=== PATIENT | female | born 1980 | race Caucasian/White ===

== ENCOUNTER 2017-01-20 14:03 | Emergency (ER) | payer OTHER ==
[2017-01-20 14:07] VITALS: BP 111/56; PULSE 75; TEMP 98; BMI 28.3
[2017-01-20] MEDS ORDERED: KETOROLAC TROMETHAMINE 60 MG/2 ML VIAL IM ONE (14:39)
--- NOTE | 2017-01-20 14:42 | PDOC ---
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 Patient reports that she woke up with pain it is positional, no pain on inspiration. Denies any chest pain or shortness of breath., Nonradiating pain, no neurosensory deficits, no bowel or bladder difficulty incontinence or urinary retention, no saddle anesthesia, no footdrop. No history of IVDU or history of cancer. REVIEW OF SYSTEMS: GENERAL: Afebrile, denies any weakness RESPIRATORY: No cough, wheezing, or hemoptysis. CARDIAC: No chest pain or shortness of breath MUSCULOSKELETAL: Pain to generalized lower back. No point tenderness. Pain worse on right than left. SKIN : No erythema, no bruising, no deformity. GI/: Denies any abdominal pain, no urinary difficulty, incontinence or urinary retention. RECTAL: Denies any difficulty this A.m. NEUROLOGICAL: Denies any numbness or tingling. No neurosensory deficits. PHYSICAL EXAM: GENERAL: The patient is awake, alert, and fully oriented, in no acute distress. RESPIRATORY: Lungs clear bilaterally, no rhonchi wheezes or crackles CARDIAC: S1-S2 audible, no murmur rub or gallop MUSCULOSKELETAL: Pain under right lateral ribs, nonradiating, no tingling or sensory deficit. Less than 2 second cap refill, +4 popliteal and pedal pulses. GI/: Abdomen soft, nontender, nondistended. No rebound tenderness. No masses palpable. MUSCULOSKELETAL: No spinal point tenderness. Normal reflexive and no deficits to sensation or strength. RECTAL: Deferred patient with no neurological findings SKIN: Warm, Dry, normal turgor, no erythema, no edema no bruising. Past History - Past Medical History Allergies/Adverse Reactions: Allergies Allergy/AdvReac Type Severity Reaction Status Date / Time No Known Allergies Allergy Verified 01/20/17 14:07 Home Medications: Ambulatory Orders Ibuprofen [Motrin -] 600 mg PO QID #28 tablet 01/20/17 Nitrofurantoin Monohyd/M-Cryst [Macrobid -] 100 mg PO BID #14 capsule 01/20/17 - Surgical History Abdominal Surgery: Yes (cyst removed form right ovary) - Psycho/Social/Smoking Cessation Hx Anxiety: No Suicidal Ideation: No Smoking History: Current every day smoker Number of Cigarettes Smoked Daily: 6 Information on smoking cessation initiated: No Hx Alcohol Use: Yes (occasionally) Drug/Substance Use Hx: No Substance Use Type: Alcohol *Physical Exam - Vital Signs Last Vital Signs Temp Pulse Resp BP Pulse Ox 98 F 75 18 111/56 100 01/20/17 14:04 01/20/17 14:04 01/20/17 14:04 01/20/17 14:04 01/20/17 14:04 ED Treatment Course - RADIOLOGY Radiology Studies Ordered: Category Date Time Status RIBS RIGHT SIDE [RAD] Stat Radiology 01/20/17 14:39 Ordered Medical Decision Making - Medical Decision Making 01/20/17 15:46 A/P : Right lateral mid back discomfort, positional to lower ribs. urinalysis, urine , urine culture, Xray right ribs. Xray with intact right ribs, no Pneumo or pleural effusion. Questionable gallstones. Patient is asymptomatic, no fever, no abdominal pain. We will perform an ultrasound to assess. 01/20/17 16:46 Ultrasound demonstrated cholelithiasis, hepatomegaly with diffuse fatty infiltration of the liver. Total bili palpation, pancreas is normal size, no evidence of hydronephrosis or acute abnormalities of the right kidney. 01/20/17 16:56 Laboratory Results - last 24 hr 01/20/17 14:29 Urine Color Yellow Urine Appearance Slcloudy Urine pH 5.0 D Urine Protein Negative Urine Glucose (UA) Negative Urine Ketones Negative Urine Blood Negative Urine Nitrite Negative Urine Bilirubin Negative Urine Urobilinogen Negative Ur Leukocyte Esterase 3+ H Urine RBC 2 Urine WBC 5 Ur Epithelial Cells Moderate Urine Mucus Rare Urine HCG, Qual Negative Urinalysis demonstrates a +3 leukoesterase with a WBC count of 5 we'll DC patient on Macrobid, Motrin for pain, follow-up with surgery for cholelithiasis no evidence of cholysystitis. No ductal dilatation or biliary obstruction. I discussed the physical exam findings, ancillary test results and final diagnoses with the patient. I answered all of the patient's questions. The patient was satisfied with the care received and felt comfortable with the discharge plan and treatment plan. The patient will call to arrange follow-up and will return to the Emergency Department with any new, persistent or worsening symptoms. *DC/Admit/Observation/Transfer Diagnosis at time of Disposition: Urinary tract infection Qualifiers: Urinary tract infection type: site unspecified Hematuria presence: without hematuria Qualified Code(s): N39.0 - Urinary tract infection, site not specified Cholelithiasis Qualifiers: Cholelithiasis location: gallbladder Cholecystitis presence: without cholecystitis Biliary obstruction: without biliary obstruction Qualified Code(s) : K80.20 - Calculus of gallbladder without cholecystitis without obstruction - Discharge Dispostion Disposition: HOME Condition at time of disposition: Good Admit: No - Prescriptions Prescriptions: Nitrofurantoin Monohyd/M-Cryst [Macrobid -] 100 mg PO BID #14 capsule Ibuprofen [Motrin -] 600 mg PO QID #28 tablet - Referrals Referrals: Ángel Pagan MD, MD [Primary Care Provider] - Nash Whittaker MD [Staff Physician] - - Patient Instructions Additional Instructions: Please follow up in the office of Dr. Whittaker if pain persists for evaluation of gall stones. They are not infected currently. Treatment as needed for pain, if any increased pain, fever, or any other concerns return to ER. I am starting you on antibiotics please take until completed. - Post Discharge Activity Work/School Note: Back to Work
[2017-01-20 15:07] LABS: URINE APPEARANCE SLCLOUDY; URINE BILIRUBIN NEGATIVE (NEGATIVE); URINE BLOOD NEGATIVE (NEGATIVE); URINE COLOR YELLOW; URINE GLUCOSE (UA) NEGATIVE (NEGATIVE); URINE KETONE NEGATIVE (NEGATIVE); URINE NITRITE NEGATIVE (NEGATIVE); URINE PROTEIN NEGATIVE (NEGATIVE); URINE UROBILINOGEN NEGATIVE mg/dL (0.2-1.0)
[2017-01-20 15:08] LABS: URINE LEUK ESTERASE 3+ (NEGATIVE)
[2017-01-20 15:09] LABS: URINE MUCUS RARE; URINE RBC 2 /hpf (0-3); URINE WBC 5 /hpf (3-5)
[2017-01-20] MEDS ORDERED: KETOROLAC TROMETHAMINE 60 MG/2 ML VIAL ONE (15:12)
== END 2017-01-20 17:09 | disposition home or self-care (01) ==
LOC: JERFT 14:03
PROC: 3E0233Z Introduction of Anti-inflammatory into Muscle, Percutaneous Approach (ICD-10-PCS; principal; 2017-01-20)
DX: K80.20 Calculus of gallbladder without cholecystitis without obstruction (principal); N39.0 Urinary tract infection, site not specified
CPT/HCPCS: 71101-TC-RT; 76705-TC; 81003; 81015; 84703; 87086; 96372; 99281-25

== ENCOUNTER 2017-04-26 18:15 | Emergency (ER) | payer OTHER ==
[2017-04-26 18:30] VITALS: BP 116/66; PULSE 71; TEMP 98.1; BMI 27.4
[2017-04-26] MEDS ORDERED: ACETAMINOPHEN 500 MG TABLET (FP) PO ONE (18:48)
[2017-04-26] MEDS ORDERED: ACETAMINOPHEN 500 MG TABLET (FP) ONE (18:49)
--- NOTE | 2017-04-26 18:53 | PDOC ---
History of Present Illness - General Chief Complaint: Injury Stated Complaint: ANKLE INJURY Time Seen by Provider: 04/26/17 18:39 History Source: Patient Exam Limitations: No Limitations - History of Present Illness Initial Comments: 04/26/17 18:55 My Chief Complaint: fall twisting rt. ankle History of Present Illness: Patient is a 36-year-old female with a history of anxiety/depression here today due to having right lateral ankle pain after falling and twisting her ankle prior to arrival here today. Patient noticeable swelling to her right lateral ankle and is having difficulty walking due to pain. Patient denies any other injuries. Patient reports the pain currently is an 8 out of 10 throbbing. Occurred: reports: just prior to arrival Severity: reports: severe (rt.lateral ankle) Pain Location: reports: lower extremity (rt. lateral ankle ) Method of Injury: Yes: fall Modifying Factors: improves with: None Loss of Consciousness: no loss of consciousness Associated Symptoms (Fall): trouble walking Past History - Past Medical History Allergies/Adverse Reactions: Allergies Allergy/AdvReac Type Severity Reaction Status Date / Time No Known Allergies Allergy Verified 04/26/17 18:25 Home Medications: Ambulatory Orders Sertraline HCl [Zoloft -] 50 mg PO DAILY 04/26/17 COPD: No Psychiatric Problems: Yes (depression/anxiety) - Surgical History Abdominal Surgery: Yes (cyst removed form right ovary) - Suicide/Smoking/Psychosocial Hx Smoking History: Current every day smoker Have you smoked in the past 12 months: Yes Number of Cigarettes Smoked Daily: 6 Information on smoking cessation initiated: Yes 'Breaking Loose' booklet given: 04/26/17 Hx Alcohol Use: Yes Drug/Substance Use Hx: No Substance Use Type: Alcohol Review of Systems - Review of Systems Able to Perform ROS?: Yes Constitutional: No: Symptoms Reported HEENTM: No: Symptoms Reported Respiratory: No: Symptoms reported Cardiac (ROS): No: Symptoms Reported ABD/GI: No: Symptoms Reported : No: Symptoms Reported Musculoskeletal: Yes: Joint Pain (rt. lateral ankle), Joint Swelling (rt. ankle lateral ) Integumentary: No: Symptoms Reported Neurological: No: Symptoms reported *Physical Exam - Vital Signs Last Vital Signs Temp Pulse Resp BP Pulse Ox 98.1 F 71 18 116/66 100 04/26/17 18:25 04/26/17 18:25 04/26/17 18:25 04/26/17 18:25 04/26/17 18:25 - Physical Exam General Appearance: Yes: Appropriately Dressed Vascular Pulses: Dorsalis-Pedis (R): 4+ Extremity: positive: Normal Capillary Refill, Tender (right ankle lateral ), Swelling (rt. lateral ankle). negative: Normal Inspection (rt. ankle), Normal Range of Motion (slightly decreased range of motion rt. ankle) Integumentary: positive: Swelling (rt.lateral ankle ) Neurologic: positive: Alert, Normal Response, Respond to painful stimul (right foot/ankle), Responsive. negative: Numbness, Sensory Deficit Deep Tendon Reflexes: Ankle (R): 4+ (no induration ) Medical Decision Making - Medical Decision Making 04/26/17 18:59 Patient is a 36-year-old female with a history of anxiety/depression here today due to having right lateral ankle pain after falling and twisting her ankle prior to arrival here today. Patient noticeable swelling to her right lateral ankle and is having difficulty walking due to pain. Patient denies any other injuries. Patient reports the pain currently is an 8 out of 10 throbbing. Pt. denies any chance of and is willing to sign prior to xray that she is not. Fall R/O fracture rt. ankle PLAN: acetaminophen 1000 mg po now xray right ankle/foot CHAY WRAP 3 INCH AND air cast rt.ankle crutches given FOLLOW UP WITH ORTHO 04/26/17 19:37 *DC/Admit/Observation/Transfer Diagnosis at time of Disposition: Right ankle sprain Qualifiers: Encounter type: initial encounter Involved ligament of ankle: unspecified ligament Qualified Code(s): S93.401A - Sprain of unspecified ligament of right ankle, initial encounter - Discharge Dispostion Disposition: HOME Condition at time of disposition: Stable - Referrals Referrals: Ángel Pagan MD, MD [Primary Care Provider] - Nash Kelly MD [Staff Physician] - - Patient Instructions Additional Instructions: ELEVATE RIGHT LEG MUCH POSSIBLE AND APPLY ICE EVERY HOUR FOR 15 MINUTES WEAR CHAY WRAP AND AIRCAST DURING THE DAY TAKE OFF AT NIGHT AND USE CRUTCHES FOR AMBULATION FOLLOW UP WITH ORTHOPEDIST TOMORROW PATIENT VOICED UNDERSTANDING OF DISCHARGE INSTRUCTIONS AND ALL QUESTIONS WERE ANSWERED TAKE IBUPROFEN NEEDED DIRECTED BY MANUFACTURE FOR PAIN - Post Discharge Activity Forms/Work/School Notes: Back to Work
== END 2017-04-26 19:47 | disposition home or self-care (01) ==
LOC: JERFT 18:15
DX: S93.401A Sprain of unspecified ligament of right ankle, initial encounter (principal); X50.1XXA Overexertion from prolonged static or awkward postures, initial encounter; Y93.89 Activity, other specified; Y92.89 Other specified places as the place of occurrence of the external cause; Y99.8 Other external cause status; W10.8XXA Fall (on) (from) other stairs and steps, initial encounter
CPT/HCPCS: 73610-TC-RT; 73630-TC-RT; 99281-25

== ENCOUNTER 2018-03-06 09:40 | Emergency (ER) | payer OTHER ==
[2018-03-06 09:56] VITALS: BP 100/67; PULSE 63; TEMP 98.4; BMI 27.4
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
== END 2018-03-06 11:48 | disposition home or self-care (01) ==
LOC: JERFT 09:40
PROC: 2W3QX1Z Immobilization of Right Lower Leg using Splint (ICD-10-PCS; principal; 2018-03-06)
DX: S93.401A Sprain of unspecified ligament of right ankle, initial encounter (principal); X58.XXXA Exposure to other specified factors, initial encounter; Y93.89 Activity, other specified; Y92.410 Unspecified street and highway as the place of occurrence of the external cause
CPT/HCPCS: 29515; 73610-TC-RT-FY; 99281-25

== ENCOUNTER 2018-04-01 21:23 | Emergency (ER) | payer OTHER ==
[2018-04-01 21:30] VITALS: BP 115/78; PULSE 104; TEMP 98; BMI 26.5
--- NOTE | 2018-04-01 22:48 | PDOC ---
History of Present Illness - General Chief Complaint: Psychiatric Stated Complaint: ANXIETY Time Seen by Provider: 04/01/18 22:11 History Source: Patient Exam Limitations: No Limitations - History of Present Illness Initial Comments: 04/01/18 22:48 Best Contact: Patient refuses to answer PCP: Patient refuses to answer Pmhx: Patient refuses to answer Pshx: Patient refuses to answer Allergies: Patient refuses to answer LMP: Patient refuses to answer 37-year-old female presents to the ER requesting for Seroquel 100 mg 1 tab by mouth daily prescription refill. Patient states she takes the medication for depression and adamantly denies suicidal/homicidal tendencies a thoughts. Patient states she didn't get a chance to go to her appointment to see her physician earlier this afternoon for prescription refill therefore she is in the emergency department. Patient eloped from the ER after I advised her that I cannot write her for 3 months supply of medication. Past History - Past Medical History Allergies/Adverse Reactions: Allergies Allergy/AdvReac Type Severity Reaction Status Date / Time No Known Allergies Allergy Verified 04/01/18 21:30 Home Medications: Ambulatory Orders Sertraline HCl [Zoloft -] 50 mg PO DAILY 04/26/17 COPD: No DVT: No Psychiatric Problems: Yes (depression/anxiety) - Surgical History Abdominal Surgery: Yes (cyst removed form right ovary) - Suicide/Smoking/Psychosocial Hx Smoking History: Current every day smoker Have you smoked in the past 12 months: Yes Number of Cigarettes Smoked Daily: 10 Information on smoking cessation initiated: No 'Breaking Loose' booklet given: 04/26/17 Hx Alcohol Use: Yes Drug/Substance Use Hx: Yes Substance Use Type: Alcohol, Marijuana Review of Systems - Review of Systems Able to Perform ROS?: Yes Comments:: 04/01/18 23:01 CONSTITUTIONAL: Absent: fever, chills, diaphoresis, generalized weakness, malaise, loss of appetite HEENT: Absent: rhinorrhea, nasal congestion, throat pain, throat swelling, difficulty swallowing, mouth swelling, ear pain, eye pain, visual Changes CARDIOVASCULAR: Absent: chest pain, loss of consciousness, palpitations, irregular heart rate, peripheral edema RESPIRATORY: Absent: cough, shortness of breath, dyspnea with exertion, orthopnea, wheezing, stridor, hemoptysis GASTROINTESTINAL: Absent: abdominal pain, abdominal distension, nausea, vomiting, diarrhea, constipation, melena, hematochezia GENITOURINARY: +erection x7h Absent: dysuria, frequency, urgency, hesitancy, hematuria, flank pain MUSCULOSKELETAL: Absent: myalgia, arthralgia, joint swelling SKIN: Absent: rash, itching, pallor HEMATOLOGIC/IMMUNOLOGIC: Absent: easy bleeding, easy bruising, lymphadenopathy, frequent infections ENDOCRINE: Absent: unexplained weight gain, unexplained weight loss, heat intolerance, cold intolerance NEUROLOGIC: Absent: headache, focal weakness or paresthesias, dizziness, unsteady gait, seizure, mental status changes, bladder or bowel incontinence PSYCHIATRIC: Absent: anxiety, depression, suicidal or homicidal ideation, hallucinations. Is the patient limited Swedish proficient: No *Physical Exam - Vital Signs Last Vital Signs Temp Pulse Resp BP Pulse Ox 98 F 104 H 18 115/78 100 04/01/18 21:23 04/01/18 21:23 04/01/18 21:23 04/01/18 21:23 04/01/18 21:23 - Physical Exam Comments: 04/01/18 23:01 GENERAL: Well developed, well nourished. Awake and alert. No acute distress. HEENT: Normocephalic, atraumatic. PERRLA, EOMI. No conjunctival pallor. Sclera are non- icteric. Moist mucous membranes. Oropharynx is clear. NECK: Supple. Full ROM. No JVD. Carotid pulses 2+ and symmetric, without bruits. No thyromegaly. No lymphadenopathy. CARDIOVASCULAR: Regular rate and rhythm. No murmurs, rubs, or gallops. Distal pulses are 2+ and symmetric. PULMONARY: No evidence of respiratory distress. Lungs clear to auscultation bilaterally. No wheezing, rales or rhonchi. ABDOMINAL: Soft. Non-tender. Non-distended. No rebound or guarding. No organomegaly. Normoactive bowel sounds. MUSCULOSKELETAL Normal range of motion at all joints. No bony deformities or tenderness. No CVA tenderness. EXTREMITIES: No cyanosis. No clubbing. No edema. No calf tenderness. SKIN: Warm and dry. Normal capillary refill. No rashes. No jaundice. NEUROLOGICAL: Alert, awake, appropriate. Cranial nerves 2-12 intact. No deficits to light touch and temperature in face, upper extremities and lower extremities. No motor deficits in the in face, upper extremities and lower extremities. Normoreflexic in the upper and lower extremities. Normal speech. Toes are down- going bilaterally. Gait is normal without ataxia. PSYCHIATRIC: Cooperative. Good eye contact. Appropriate mood and affect. Heart Score/ECG Review - History History: Slightly suspicious - Electrocardiogram EKG: Normal - Age Age: >/= 65 - Risk Factors Risk Factors Heart Score: Yes Smoking History Based on the list above the patient has:: 1-2 risk factors - Troponin Troponin: </= normal limit - Score Heart Score - Total: 3 *DC/Admit/Observation/Transfer Diagnosis at time of Disposition: Medication refill - Discharge Dispostion Disposition: ELOPED Condition at time of disposition: Stable Decision to Admit order: No - Referrals Referrals: Ángel Pagan MD, MD [Primary Care Provider] - - Patient Instructions Additional Instructions: Be sure to follow up with Dr. Pagan for your medication refill. As per our discussion, you are prescribed enough to see your doctor within 2 days Return back to the emergency department for any concerns - Post Discharge Activity
--- NOTE | 2018-04-03 15:37 | EKG ---
Test Reason : Blood Pressure : / mmHG Vent. Rate : 096 BPM Atrial Rate : 096 BPM P-R Int : 132 ms QRS Dur : 076 ms QT Int : 362 ms P-R-T Axes : 013 039 047 degrees QTc Int : 457 ms NORMAL SINUS RHYTHM WITH SINUS ARRHYTHMIA NORMAL ECG NO PREVIOUS ECGS AVAILABLE Confirmed by HENRY FLEMING, SANDRA ([id number]) on 04/03/2018 3:37:05 PM Referred By: Confirmed By:SANDRA FIGUEROA MD
== END 2018-04-02 00:59 | disposition left against medical advice (07) ==
LOC: JER 21:23
DX: Z76.0 Encounter for issue of repeat prescription (principal); F41.9 Anxiety disorder, unspecified; F32.9 Major depressive disorder, single episode, unspecified
CPT/HCPCS: 93005; 93010; 99281-25

== ENCOUNTER 2019-07-04 20:52 | Emergency (ER) | payer OTHER ==
[2019-07-04 21:04] VITALS: BP 103/65; PULSE 98; TEMP 98.1; BMI 25.8
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
[2019-07-04] MEDS ORDERED: KETOROLAC TROMETHAMINE 30 MG/1 ML VIAL IM ONE (22:05)
[2019-07-04] MEDS ORDERED: KETOROLAC TROMETHAMINE 30 MG/1 ML VIAL ONE (22:34)
== END 2019-07-05 00:40 | disposition home or self-care (01) ==
LOC: JERFT 20:52
PROC: 3E0233Z Introduction of Anti-inflammatory into Muscle, Percutaneous Approach (ICD-10-PCS; principal; 2019-07-04)
DX: M54.5 Low back pain (principal); M54.2 Cervicalgia; R51 Headache; V43.62XA Car passenger injured in collision with other type car in traffic accident, initial encounter; Y92.414 Local residential or business street as the place of occurrence of the external cause; Y93.89 Activity, other specified; Y99.8 Other external cause status
CPT/HCPCS: 70450-TC; 72100-TC-FY; 72125-TC; 99281-25

== ENCOUNTER 2021-03-03 06:20 | Inpatient (IN) | payer OTHER ==
[2021-03-03] MEDS ORDERED: CITRIC ACID/SODIUM CITRATE 30 ML UNIT-DOSE CUP PO ONE (06:30)
[2021-03-03] MEDS ORDERED: ELECTROLYTE-148 SOLN 1,000 ML IV SCH (06:30)
[2021-03-03 06:52] VITALS: BMI 35.4
[2021-03-03] MEDS: ELECTROLYTE-148 SOLN 1,000 ML IV SCH (07:15)
[2021-03-03] MEDS ORDERED: LIGASURE IMPACT TP ONE (07:34)
[2021-03-03] MEDS ORDERED: ONDANSETRON 4 MG/2 ML VIAL IVPUSH PRN (07:52)
[2021-03-03] MEDS ORDERED: morphine SULFATE (PF) 1 MG/2 ML SYRINGE ONE (08:01)
[2021-03-03] MEDS ORDERED: ceFAZolin SODIUM 1 GM VIAL ONE (08:36)
[2021-03-03] MEDS ORDERED: IBUPROFEN 800 MG/8 ML IJ IVPB PRN (09:24)
[2021-03-03] MEDS ORDERED: BENZOCAINE 20% 57 GM BOTTLE TP PRN (09:24)
[2021-03-03] MEDS ORDERED: METHYLERGONOVINE MALEATE 0.2 MG/1 ML AMP IM PRN (09:24)
[2021-03-03 09:38] LABS: ARTERIAL BLD GAS O2 SATURATION 23.4 % (95-98); ARTERIAL BLOOD GAS BASE EXCESS -3.6 mmol/L (-2-2); ARTERIAL BLOOD GAS pH 7.326 (7.350-7.450)
[2021-03-03 09:41] LABS: VENOUS BASE EXCESS -2.1 mmol/L (-2-2); VENOUS PCO2 57.5 mmHg (38-52)
[2021-03-03 09:43] LABS: ARTERIAL BLOOD GAS PO2 17.7 mmHg (80-100)
[2021-03-03] MEDS ORDERED: OXYTOCIN 20 UNITS in 0.9% NS 20 UNIT/1,000 ML INFUS.BAG IV ONE (10:28)
[2021-03-03] MEDS: OXYTOCIN 20 UNITS in 0.9% NS 20 UNIT/1,000 ML INFUS.BAG IV SCH (10:30)
[2021-03-03 12:40] LABS: HEPATITIS B SURFACE AG MATERN NON-REACTIVE (NONREACTIVE)
[2021-03-03 13:09] LABS: HIV INTERPRETATION NEGATIVE (NEGATIVE)
[2021-03-03] MEDS: FERROUS SO4 325 MG TABLET (FP) PO SCH ×2 (15:42→16:44)
[2021-03-03] MEDS: PRENATAL VITAMINS W/ FOLIC ACID TABLET (FP) PO SCH (16:08)
[2021-03-03] MEDS: ACETAMINOPHEN 325 MG TABLET (FP) PO PRN (20:44)
[2021-03-04] MEDS: oxyCODONE HCL 5 MG TABLET PO PRN ×4 (00:40→22:49)
[2021-03-04] MEDS: IBUPROFEN 600 MG TABLET (FP) PO PRN ×3 (05:58→21:00)
[2021-03-04] MEDS: ELECTROLYTE-148 SOLN 1,000 ML IV SCH ×2 (07:27→09:32)
[2021-03-04] MEDS: SIMETHICONE 80 MG TAB.CHEW (FP) PO PRN ×3 (07:28→21:00)
[2021-03-04] MEDS: FERROUS SO4 325 MG TABLET (FP) PO SCH ×2 (07:28→17:30)
[2021-03-04 07:39] LABS: BASO % 0.5 % (0-2.0); EOS % 1.3 % (0-4.5); HEMATOCRIT 29.9 % (32.4-45.2); HEMOGLOBIN 10.3 GM/dL (10.7-15.3); LYMPH % 12.7 % (8-40); MCHC 34.3 g/dl (32.0-36.0); MEAN CELL VOLUME 90.4 fl (80-96); MEAN PLT VOLUME 8.3 fl (7.5-11.1); MONO % 6.8 % (3.8-10.2); NEUT % 78.7 % (42.8-82.8); PLATELET COUNT 134 10^3/uL (134-434); RBC 3.31 M/mm3 (3.60-5.2); RDW 15.3 % (11.6-15.6); WHITE BLOOD COUNT 7.3 K/mm3 (4.0-10.0)
[2021-03-04] MEDS ORDERED: BISACODYL 10 MG SUPP.RECT RC PRN (09:25)
[2021-03-04] MEDS: PRENATAL VITAMINS W/ FOLIC ACID TABLET (FP) PO SCH (09:28)
[2021-03-04] MEDS: OXYTOCIN 20 UNITS in 0.9% NS 20 UNIT/1,000 ML INFUS.BAG IV SCH (09:32)
[2021-03-04] MEDS ORDERED: DIPHTH,PERTUSS(ACELL),TET 0.5 ML DISP.SYRIN IM ONE (10:00)
[2021-03-04] MEDS: ACETAMINOPHEN 325 MG TABLET (FP) PO PRN (21:02)
[2021-03-05] MEDS: SIMETHICONE 80 MG TAB.CHEW (FP) PO PRN ×3 (05:32→18:38)
[2021-03-05] MEDS: oxyCODONE HCL 5 MG TABLET PO PRN ×5 (05:33→20:51)
[2021-03-05] MEDS: FERROUS SO4 325 MG TABLET (FP) PO SCH ×2 (09:00→18:38)
[2021-03-05] MEDS: PRENATAL VITAMINS W/ FOLIC ACID TABLET (FP) PO SCH (09:42)
[2021-03-05] MEDS: ELECTROLYTE-148 SOLN 1,000 ML IV SCH ×2 (17:35)
[2021-03-05] MEDS: OXYTOCIN 20 UNITS in 0.9% NS 20 UNIT/1,000 ML INFUS.BAG IV SCH (17:35)
[2021-03-05] MEDS: ACETAMINOPHEN 325 MG TABLET (FP) PO PRN (20:51)
[2021-03-06] MEDS: oxyCODONE HCL 5 MG TABLET PO PRN ×3 (00:30→12:51)
[2021-03-06 09:01] VITALS: BP 101/75; PULSE 98; TEMP 98
[2021-03-06] MEDS: FERROUS SO4 325 MG TABLET (FP) PO SCH (09:04)
[2021-03-06] MEDS: PRENATAL VITAMINS W/ FOLIC ACID TABLET (FP) PO SCH (09:04)
[2021-03-06 09:40] LABS: BASO % 0.3 % (0-2.0); HEMOGLOBIN 9.9 GM/dL (10.7-15.3); MCH 31.1 pg (25.7-33.7)
[2021-03-06 09:52] LABS: EOS % 2.4 % (0-4.5); LYMPH % 16.3 % (8-40); MCHC 34.1 g/dl (32.0-36.0); MEAN CELL VOLUME 91.1 fl (80-96); MEAN PLT VOLUME 8.1 fl (7.5-11.1); MONO % 7.2 % (3.8-10.2); NEUT % 73.8 % (42.8-82.8); PLATELET COUNT 153 10^3/uL (134-434); RBC 3.18 M/mm3 (3.60-5.2); RDW 15.6 % (11.6-15.6); WHITE BLOOD COUNT 6.2 K/mm3 (4.0-10.0)
[2021-03-06] MEDS: SIMETHICONE 80 MG TAB.CHEW (FP) PO PRN (12:51)
== END 2021-03-06 14:30 | disposition home or self-care (01) | DRG 540 ==
LOC: JLDR 06:20 → J3W 11:50
PROVIDERS: ADMIT Obstetrics & Gynecology; ATTEND Obstetrics & Gynecology
PROC: 10D00Z1 Extraction of Products of Conception, Low, Open Approach (ICD-10-PCS; principal; 2021-03-03)
PROC: 0UT70ZZ Resection of Bilateral Fallopian Tubes, Open Approach (ICD-10-PCS; 2021-03-03)
DX: O44.43 Low lying placenta NOS or without hemorrhage, third trimester (principal); Z30.2 Encounter for sterilization; Z3A.39 39 weeks gestation of pregnancy; Z37.0 Single live birth
CPT/HCPCS: 36415; 36600; 80048; 82803; 85025; 85610; 85730; 86762; 86780; 86850; 86900; 86901; 87340; 87389; 88302-TC; 88307-TC; 90715; C9803; U0003; U0005